=== PATIENT | male | born 1960 | race African-American/Black ===

== ENCOUNTER 2017-06-04 19:55 | Emergency (ER) | payer MEDICARE ==
[~2017-06-04 19:55] MED LIST: ISOVUE-370 76%-LOCM 1 ML ONE
--- NOTE | 2017-06-04 20:52 | RAD ---
PORTABLE CHEST ONE VIEW: Date: 06-04-17 Time: 8:23 p.m. History: Nausea, vomiting. FINDINGS/IMPRESSION: Compared with exam of 11-04-16. Heart size normal. Changes of COPD are again seen. No lobar consolidation, pneumothorax or pleral eff usions are identified. POS: [facility]
[2017-06-04] MEDS ORDERED: Morphine 4 MG/ML VIAL ONE (21:00)
[2017-06-04] MEDS ORDERED: Ondansetron HCl/PF 4 MG/2 ML Vial ONE ×2 (21:00→23:07)
[2017-06-04 21:04] LABS: #Basophils 0.1 thou/uL (0.0-0.2); #Lymphocytes 1.6 thou/uL (1.20-3.40); #Neutrophils 7.6 thou/uL (1.40-6.50); %Basophils 0.5 % (0.0-1.0); %Eosinophils 0.2 % (0.0-10.0); %Lymphocytes 15.7 % (21.0-51.0); %Monocytes 9.9 % (0.0-10.0); %Neutrophils 73.7 % (42.0-75.0); ALT (SGPT) 85 U/L (8-55); AST (SGOT) 94 U/L (5-34); Albumin 4.3 g/dL (3.5-5.0); Alkaline Phosphatase 106 U/L (40-150); Anion Gap 21 mmol/L (10-20); BUN (Urea Nitrogen) 7 mg/dL (8.4-25.7); Bilirubin, Total 0.9 mg/dL (0.2-1.2); Calc. Creatinine Clearance 0 mL/min (70-130); Calcium 9.9 mg/dL (7.8-10.44); Carbon Dioxide 19 mmol/L (22-29); Chloride 99 mmol/L (98-107); Eosinophils 1 % (0-10); Estimated GFR-MDRD Greater than 90; Globulin 4.7 g/dL (2.4-3.5); Glucose 150 mg/dL (70-105); Hemoglobin 15.5 g/dL (14.0-18.0); Lipase 19 U/L (8-78); Lymphocytes 17 % (21-51); MDiff Complete? YES; Magnesium 1.6 mg/dL (1.6-2.6); Mean Corpuscular HGB CONC 33.9 g/dL (32.0-36.0); Mean Corpuscular Hemoglobin 31.7 pg (27.0-31.0); Mean Corpuscular Volume 93.5 fl (80.0-94.0); Mean Platelet Volume 7.8 fL (7.4-10.4); Monocytes 9 % (0-10); Neutrophil 73 % (42-75); PLT Morphology Comment Appears Adequate; Platelet Count 246 thou/uL (130-400); Potassium 4.2 mmol/L (3.5-5.1); RBC Distribution Width 14.2 % (11.5-14.5); Sodium 135 mmol/L (136-145); White Blood Cell (WBC) Count 10.3 thou/uL (4.8-10.8)
[2017-06-04 21:07] LABS: CKMB 0.6 ng/mL (0-6.6); Troponin I Less than 0.010 ng/mL (< 0.028)
[2017-06-04 22:52] LABS: Bilirubin Negative (Negative); Blood, Urine Negative (Negative); Clarity CLEAR (Clear); Glucose, Urine (Dipstick) Negative (Negative); Leukocyte Negative (Negative); Nitrite Negative (Negative); Protein, Urine (Dipstick) Negative (Neg-Trace); Urobilinogen 0.2 mg/dL (0.2-1.0)
[2017-06-04 22:53] LABS: Specific Gravity, Urine Greater than 1.060 (1.002-1.036)
--- NOTE | 2017-06-04 23:25 | CT ---
CT ABDOMEN AND PELVIS WITH IV CONTRAST: History: Abdominal pain with nausea and vomiting. FINDINGS: Comparison is made with exam of 08-13-16. There are emphysematous changes in the lung lala are again seen. There is fatty infiltration of the liver. No hepatic mass or abnormal biliary ductal dilatation is seen. No calcifications are identifi ed. The spleen, pancreas, adrenal glands, and right kidney are normal. There is a small low density i n the left renal cortex, likely a cyst. No free air, free fluid, or lymphadenopathy is seen in the ab domen or pelvis. There are vascular calcifications without evidence of aneurysmal dilatation of the a bdominal aorta. There are degenerative changes in the spine. There is a right sided hydrocele. There is no evidence of appendicitis. Sigmoid diverticulosis. IMPRESSION: 1. No evidence of acute process. 2. Fatty liver. 3. Right sided hydrocele. 4. Sigmoid diverticulosis. POS: [facility]
[2017-06-05 01:19] LABS: Lactic Acid 1.6 mmol/L (0.5-2.2)
== END 2017-06-05 01:55 | disposition home or self-care (01) ==
LOC: ERS 19:55
DX: E86.0 Dehydration (principal); R74.0 Nonspecific elevation of levels of transaminase and lactic acid dehydrogenase [LDH]; J44.9 Chronic obstructive pulmonary disease, unspecified; Z86.711 Personal history of pulmonary embolism; F17.210 Nicotine dependence, cigarettes, uncomplicated; Z79.899 Other long term (current) drug therapy
CPT/HCPCS: 36415; 71045; 74177; 80053; 81003; 82553; 83605; 83690; 83735; 84484; 85025; 93005; 96361; 96374; 96375; 96376; 99406; J2270; J2405

== ENCOUNTER 2017-08-21 08:23 | Emergency (ER) | payer MEDICARE ==
[2017-08-21] MEDS ORDERED: Morphine 4 MG/ML VIAL ONE (09:05)
[2017-08-21] MEDS ORDERED: Ondansetron ODT 4 MG TAB ONE (09:05)
[2017-08-21 09:21] LABS: Hemoglobin 14.2 g/dL (14.0-18.0); Mean Corpuscular HGB CONC 33.3 g/dL (32.0-36.0); Mean Corpuscular Hemoglobin 30.8 pg (27.0-31.0); Mean Corpuscular Volume 92.5 fl (80.0-94.0); Mean Platelet Volume 7.7 fL (7.4-10.4); Platelet Count 267 thou/uL (130-400); RBC Distribution Width 13.9 % (11.5-14.5); Red Blood Cell (RBC) Count 4.62 mill/uL (4.70-6.10)
--- NOTE | 2017-08-21 09:30 | RAD ---
TWO VIEWS CHEST: Date: 08-21-17 Comparison: 09-17-16 History: Nausea and vomiting. FINDINGS: There are coarse linear interstitial densities noted throughout both lungs with bilateral apical emph ysematous change and prominent subpleural cystic change, right greater than left. These findings are stable when compared to prior imaging. Subacute/chronic lateral inferior left rib fracture. No lobar consolidation or alveolar edema. IMPRESSION: Extensive chronic changes as described above. No definite interval change when compared to prior imag ing. POS: [facility]
[2017-08-21 09:40] LABS: Band 15 % (5-11); Lymphocytes 6 % (21-51); MDiff Complete? YES; Monocytes 4 % (0-10); Neutrophil 75 % (42-75); PLT Morphology Comment Appears Adequate; Vacuoles SLIGHT
[2017-08-21 09:50] LABS: CKMB 0.3 ng/mL (0-6.6); Troponin I Less than 0.010 ng/mL (< 0.028)
[2017-08-21] MEDS ORDERED: ISOVUE-370 76%-LOCM 1 ML ONE (10:39)
[2017-08-21] MEDS ORDERED: Iopamidol 370 76% 50 ML VIAL FS ONE (10:39)
[2017-08-21 10:58] LABS: Albumin 3.8 g/dL (3.5-5.0)
[2017-08-21 11:00] LABS: Chloride 103 mmol/L (98-107); Potassium 5.3 mmol/L (3.5-5.1); Sodium 130 mmol/L (136-145)
[2017-08-21 11:01] LABS: Calcium 8.9 mg/dL (7.8-10.44); Globulin 4.4 g/dL (2.4-3.5); Glucose 138 mg/dL (70-105); Protein, Total 8.2 g/dL (6.0-8.3)
[2017-08-21 11:02] LABS: Anion Gap 19 mmol/L (10-20); Carbon Dioxide 13 mmol/L (22-29)
[2017-08-21 11:03] LABS: Bilirubin, Total 1.4 mg/dL (0.2-1.2)
[2017-08-21 11:04] LABS: Alkaline Phosphatase 79 U/L (40-150); Calc. Creatinine Clearance 0 mL/min (70-130); Estimated GFR-MDRD 76
[2017-08-21 11:05] LABS: BUN (Urea Nitrogen) 7 mg/dL (8.4-25.7)
[2017-08-21 11:06] LABS: AST (SGOT) 25 U/L (5-34)
[2017-08-21 11:07] LABS: ALT (SGPT) 16 U/L (8-55); Lipase 11 U/L (8-78)
[2017-08-21 11:29] LABS: Bilirubin Small (Negative); Blood, Urine Negative (Negative); Clarity CLEAR (Clear); Glucose, Urine (Dipstick) Negative (Negative); Leukocyte Small (Negative); Nitrite Negative (Negative); Protein, Urine (Dipstick) 30 mg/dL (Neg-Trace); Specific Gravity, Urine 1.019 (1.002-1.036); pH, Urine 7.5 (5.0-9.0)
[2017-08-21 11:33] LABS: Bacteria/HPF None Seen HPF (None Seen); Pathc Cast-AUWi Flag 1.59 (0-2.49); Squamous Epithelial 0-3 HPF (0-3); WBC/HPF 0-3 HPF (0-3)
[2017-08-21 11:35] LABS: RBC/HPF 0-3 HPF (0-3)
--- NOTE | 2017-08-21 12:47 | CT ---
CT ABDOMEN WITH CONTRAST CT PELVIS WITH CONTRAST: HISTORY: Abdominal pain. Vomiting. COMPARISON: 06/04/17. TECHNIQUE: Abdomen and pelvic CT are performed with IV and oral contrast. Coronal reformatted images are submit janae for interpretation. FINDINGS: ABDOMEN CT: Minimal ground-glass and emphysematous changes in the lung bases. Heart size is normal. No pericard ial effusion. The descending thoracic aorta and abdominal aorta have an overall normal caliber. No periaortic fat stranding. Mild atherosclerosis is noted. Intra- and extrahepatic portal vein is patent. Diffuse hypoattenuation of the liver due to hepatic steatosis. No hepatic masses. A 12 cm hypodensi ty in the hepatic dome measuring 4 mm. The lesion is too small to further characterize. Spleen, blackburn creas, and adrenal glands are unremarkable. Gallbladder is unremarkable. No gastrohepatic, retrocrural, or periportal lymphadenopathy. No mesenteric mass, lymphadenopathy, free air, or free fluid. Symmetric enhancement of the kidneys. No obstructive uropathy. Gastric mucosa, duodenum, and multip le normal-caliber small bowel loops are noted. The ileocecal junction is normal. Scattered fecal ma terial in a nondistended, nondilated colon. No evidence of chronic obstruction. Appendix is not jaxon reciated. No inflammation at the cecal apex. PELVIC CT: No mass, lymphadenopathy, free air, or free fluid. The urinary bladder is unremarkable. No lytic or blastic lesions in the osseous structures. IMPRESSION: 1. Mild emphysematous change in the lung bases. 2. No acute abnormality in the abdomen or pelvis. 3. Hepatic steatosis. POS: [facility]
== END 2017-08-21 12:06 | disposition home or self-care (01) ==
LOC: ERS 08:23
DX: E86.0 Dehydration (principal); R11.2 Nausea with vomiting, unspecified; R10.9 Unspecified abdominal pain; Z86.711 Personal history of pulmonary embolism; J44.9 Chronic obstructive pulmonary disease, unspecified; Z87.891 Personal history of nicotine dependence; Z79.899 Other long term (current) drug therapy
CPT/HCPCS: 36415; 71046; 74177; 80053; 81003; 81015; 82553; 83690; 84484; 85025; 93005; 96361; 96374; J2270; Q0162

== ENCOUNTER 2017-09-06 17:43 | Emergency (ER) | payer MEDICARE ==
[2017-09-06 19:00] LABS: #Basophils 0.1 thou/uL (0.0-0.2); #Lymphocytes 1.4 thou/uL (1.20-3.40); #Neutrophils 11.9 thou/uL (1.40-6.50); %Basophils 0.6 % (0.0-1.0); %Eosinophils 0.1 % (0.0-10.0); %Lymphocytes 9.5 % (21.0-51.0); %Monocytes 6.7 % (0.0-10.0); %Neutrophils 83.2 % (42.0-75.0); Hemoglobin 15.2 g/dL (14.0-18.0); Mean Corpuscular HGB CONC 33.9 g/dL (32.0-36.0); Mean Corpuscular Hemoglobin 30.8 pg (27.0-31.0); Mean Corpuscular Volume 90.8 fl (80.0-94.0); Mean Platelet Volume 7.1 fL (7.4-10.4); Platelet Count 522 thou/uL (130-400); RBC Distribution Width 14.7 % (11.5-14.5); Red Blood Cell (RBC) Count 4.92 mill/uL (4.70-6.10); White Blood Cell (WBC) Count 14.4 thou/uL (4.8-10.8)
[2017-09-06] MEDS ORDERED: Ondansetron HCl/PF 4 MG/2 ML Vial SLOW IVP SCH (19:00)
[2017-09-06 19:08] LABS: ALT (SGPT) 16 U/L (8-55); AST (SGOT) 26 U/L (5-34); Albumin 4.1 g/dL (3.5-5.0); Alkaline Phosphatase 89 U/L (40-150); Anion Gap 18 mmol/L (10-20); BUN (Urea Nitrogen) 8 mg/dL (8.4-25.7); Bilirubin, Total 0.7 mg/dL (0.2-1.2); Calc. Creatinine Clearance 0 mL/min (70-130); Calcium 10.3 mg/dL (7.8-10.44); Carbon Dioxide 23 mmol/L (22-29); Chloride 95 mmol/L (98-107); Estimated GFR-MDRD 79; Globulin 5.5 g/dL (2.4-3.5); Glucose 144 mg/dL (70-105); Lipase 33 U/L (8-78); Potassium 4.6 mmol/L (3.5-5.1); Protein, Total 9.6 g/dL (6.0-8.3); Sodium 131 mmol/L (136-145)
[2017-09-06] MEDS ORDERED: Ketorolac Tromethamine 30 MG/ML VIAL ONE (20:14)
== END 2017-09-06 22:15 | disposition home or self-care (01) ==
LOC: ERS 17:43
DX: K29.70 Gastritis, unspecified, without bleeding (principal); J44.9 Chronic obstructive pulmonary disease, unspecified; Z86.711 Personal history of pulmonary embolism; Z87.891 Personal history of nicotine dependence; Z79.899 Other long term (current) drug therapy
CPT/HCPCS: 80053; 83690; 85025; 96361; 96374; 96375; J1885; J2405

== ENCOUNTER 2017-12-27 17:07 | Observation (INO) | payer MEDICARE ==
[2017-12-27] MEDS ORDERED: Ondansetron ODT 4 MG TAB ONE (17:22)
[2017-12-27 17:38] LABS: #Basophils 0.2 thou/uL (0.0-0.2); #Lymphocytes 1.7 thou/uL (1.20-3.40); #Monocytes 0.9 thou/uL (0.11-0.59); #Neutrophils 11.5 thou/uL (1.40-6.50); %Basophils 1.1 % (0.0-1.0); %Eosinophils 0.1 % (0.0-10.0); %Lymphocytes 12.1 % (21.0-51.0); %Monocytes 6.6 % (0.0-10.0); %Neutrophils 80.1 % (42.0-75.0); Hemoglobin 15.9 g/dL (14.0-18.0); Mean Corpuscular HGB CONC 32.2 g/dL (32.0-36.0); Mean Corpuscular Hemoglobin 29.7 pg (27.0-31.0); Mean Corpuscular Volume 92.4 fL (78.0-98.0); Mean Platelet Volume 6.7 fL (7.4-10.4); Platelet Count 320 thou/uL (130-400); RBC Distribution Width 14.5 % (11.5-14.5); Red Blood Cell (RBC) Count 5.34 mill/uL (4.70-6.10); White Blood Cell (WBC) Count 14.3 thou/uL (4.8-10.8)
[2017-12-27 18:09] LABS: Anion Gap 23 mmol/L (10-20); BUN (Urea Nitrogen) 6 mg/dL (8.4-25.7); Calc. Creatinine Clearance 0 mL/min (70-130); Carbon Dioxide 17 mmol/L (22-29); Chloride 97 mmol/L (98-107); Estimated GFR-MDRD 77; Glucose 166 mg/dL (70-105); Potassium 4.7 mmol/L (3.5-5.1); Sodium 132 mmol/L (136-145)
[2017-12-27 18:10] LABS: ALT (SGPT) 25 U/L (8-55); AST (SGOT) 37 U/L (5-34); Albumin 4.4 g/dL (3.5-5.0); Alkaline Phosphatase 87 U/L (40-150); Bilirubin, Total 0.9 mg/dL (0.2-1.2); Globulin 5.2 g/dL (2.4-3.5); Lipase 18 U/L (8-78); Protein, Total 9.6 g/dL (6.0-8.3)
[2017-12-27] MEDS ORDERED: Morphine 4 MG/ML VIAL ONE (18:31)
[2017-12-27] MEDS ORDERED: Metoclopramide HCl 10 MG/2 ML VIAL ONE (18:31)
--- NOTE | 2017-12-27 20:09 | CT ---
ABDOMEN AND PELVIS CT WITH CONTRAST 12/27/17 COMPARISON: 08/21/17. INDICATION: Abdominal pain, leukocytosis. FINDINGS: No interval acute process of the solid abdominal organs. There is emphysema of the lung bases. There are scattered colonic diverticula. Vascular disease is present. There is no free air or significant a scites. Prostate calcifications present. There is marked prominence of the seminal vesicles. No acute osseous pathology. The bowel is essentially unopacified by enteric contrast with the exception of th e gastric lumen which limits evaluation. IMPRESSION: No definite acute process. Additional details are described above. POS: [facility]
[2017-12-27] MEDS ORDERED: Ondansetron HCl/PF 4 MG/2 ML Vial ONE (21:39)
[2017-12-27 21:58] VITALS: BMI 20.1
[2017-12-27] MEDS ORDERED: Ondansetron HCl/PF 4 MG/2 ML Vial IVP PRN (22:01)
[2017-12-27] MEDS ORDERED: Ondansetron ODT 4 MG TAB SL PRN (22:01)
[2017-12-27] MEDS ORDERED: HYDROcodone/Acetaminophen 5/325 mg Tablet PO PRN ×2 (22:01)
[2017-12-27] MEDS: Sodium Chloride 0.9% 1,000 ML IV SCH (22:21)
[2017-12-28] MEDS: Sodium Chloride 0.9% 1,000 ML IV SCH ×5 (04:39→22:16)
[2017-12-28] MEDS ORDERED: Morphine 4 MG/ML VIAL IV SCH (06:30)
[2017-12-28 10:18] LABS: #Basophils 0.1 thou/uL (0.0-0.2); #Eosinphils 0.1 thou/uL (0.0-0.7); #Lymphocytes 1.4 thou/uL (1.20-3.40); #Monocytes 1.2 thou/uL (0.11-0.59); #Neutrophils 5.9 thou/uL (1.40-6.50); %Basophils 0.6 % (0.0-1.0); %Eosinophils 0.9 % (0.0-10.0); %Lymphocytes 16.4 % (21.0-51.0); %Monocytes 13.5 % (0.0-10.0); %Neutrophils 68.6 % (42.0-75.0); Hemoglobin 12.3 g/dL (14.0-18.0); Mean Corpuscular HGB CONC 32.7 g/dL (32.0-36.0); Mean Corpuscular Hemoglobin 30.5 pg (27.0-31.0); Mean Corpuscular Volume 93.4 fL (78.0-98.0); Mean Platelet Volume 6.5 fL (7.4-10.4); Platelet Count 264 thou/uL (130-400); RBC Distribution Width 14.4 % (11.5-14.5); Red Blood Cell (RBC) Count 4.05 mill/uL (4.70-6.10); White Blood Cell (WBC) Count 8.6 thou/uL (4.8-10.8)
[2017-12-28 11:59] LABS: ALT (SGPT) 15 U/L (8-55); AST (SGOT) 24 U/L (5-34); Albumin 3.4 g/dL (3.5-5.0); Alkaline Phosphatase 60 U/L (40-150); Anion Gap 10 mmol/L (10-20); BUN (Urea Nitrogen) 6 mg/dL (8.4-25.7); Calc. Creatinine Clearance 76 mL/min (70-130); Calcium 8.4 mg/dL (7.8-10.44); Carbon Dioxide 23 mmol/L (22-29); Chloride 107 mmol/L (98-107); Estimated GFR-MDRD Greater than 90; Globulin 3.6 g/dL (2.4-3.5); Glucose 109 mg/dL (70-105); Potassium 3.7 mmol/L (3.5-5.1); Sodium 136 mmol/L (136-145)
[2017-12-28] MEDS: Ondansetron HCl/PF 4 MG/2 ML Vial IVP PRN ×2 (14:26→21:14)
[2017-12-28] MEDS ORDERED: Acetaminophen/Codeine 30-300mg Tablet PO PRN (20:56)
[2017-12-29] MEDS ORDERED: Pantoprazole 40 MG VIAL IVP SCH ×2 (02:00→09:00)
--- NOTE | 2017-12-29 02:25 | HP ---
DATE OF ADMISSION: 12/27/2017 REASON FOR ADMISSION AND CHIEF COMPLAINT: Intractable nausea, vomiting, and abdominal pain. HISTORY OF PRESENT ILLNESS: Mr. Marc is a 57-year-old -[place] male with past medical history of COPD, retinitis pigmentosa, came with sudden onset of nausea, vomiting. The patient has history of chronic nausea, vomiting in the past, had GI workup done earlier this year. The patient says he vomited several times, unable to eat anything and unable to keep anything down. Whenever he tries to eat or drink anything, he has vomited. Because of that, he is having pain in the epigastric area. No history of fever, cough, congestion, no history of any diarrhea or constipation. The patient came to the emergency room because of these intractable nausea and vomiting. In the ER , the patient was evaluated and found to have some metabolic acidosis. The patient received IV fluids and Zofran in the ER, also received a dose of Reglan. CT scan of the abdomen and pelvis done and it was unremarkable. PAST MEDICAL HISTORY: 1. Retinitis pigmentosa. 2. Bullous emphysema. 3. history of pulmonary embolism, treated with Eliquis. 4. History of lactic acidosis. PAST SURGICAL HISTORY: 1. Status post neck surgery. 2. Status post right femur surgery. 3. Status post appendectomy. CURRENT MEDICATIONS: Zofran p.r.n. Otherwise, no other medications. FAMILY HISTORY: Nothing of interest. SOCIAL HISTORY: The patient lives with family. He does not smoke now, used to smoke before. Drinks beer every day, he says about 4-5 beers. REVIEW OF SYSTEMS: Cardiovascular: No chest pain. No shortness of breath. Respiratory: No cough, fever. Gastrointestinal: Has abdominal pain, nausea, vomiting. No diarrhea. Central nervous system: No headache, no dizziness. PHYSICAL EXAMINATION: GENERAL: The patient is alert, awake, oriented x3. VITAL SIGNS: Temperature 98, pulse 110, respirations 20, blood pressure 130/80. HEENT: Head is normocephalic, atraumatic. Pupils equal and reactive to light. Nasopharynx is pale and dry. Hard and soft palate, no lesions seen. SKIN: Skin turgor decreased. NECK: Supple. No JVD. LUNGS: Bilateral air entry present. No rales, no rhonchi. HEART: S1, S2 regular. ABDOMEN: Soft. Tender in the epigastric area. No guarding, no rigidity. Bowel sounds present. RECTAL: Deferred. CENTRAL NERVOUS SYSTEM: No focal deficit. LABORATORY AND X-RAY FINDINGS: CBC shows WBC 14, hemoglobin 15, hematocrit 49, platelets 320. Metabolic panel: Sodium 132, potassium 4.7, chloride 97, CO2 of 17, BUN 6, creatinine 1.1, glucose 166, alkaline phosphatase 87, AST 37, ALT 25. CT scan of the abdomen unremarkable. ASSESSMENT: 1. Intractable nausea and vomiting. 2. Abdominal pain, epigastric. 3. Metabolic acidosis. 4. Bullous emphysema. 5. Retinitis pigmentosa and History of pulmonary embolism. PLAN: 1. Vital signs q.4 hours. 2. Activities: As tolerated. 3. Allergies: No known drug allergies. 4. IV fluids: Normal saline at 100 mL per hour. 5. Diet: N.p.o. 6. Zofran 4 mg IVP q.6 hours p.r.n. 7. DuoNebs q.i.d. p.r.n. 8. GI consult. PAULINA
[2017-12-29 05:37] LABS: #Eosinphils 0.3 thou/uL (0.0-0.7); #Lymphocytes 1.2 thou/uL (1.20-3.40); #Neutrophils 5.7 thou/uL (1.40-6.50); %Basophils 0.5 % (0.0-1.0); %Eosinophils 3.3 % (0.0-10.0); %Lymphocytes 14.8 % (21.0-51.0); %Monocytes 12.1 % (0.0-10.0); %Neutrophils 69.3 % (42.0-75.0); Hemoglobin 12.2 g/dL (14.0-18.0); Mean Corpuscular HGB CONC 32.4 g/dL (32.0-36.0); Mean Corpuscular Hemoglobin 30.3 pg (27.0-31.0); Mean Corpuscular Volume 93.5 fL (78.0-98.0); Platelet Count 249 thou/uL (130-400); RBC Distribution Width 14.1 % (11.5-14.5); Red Blood Cell (RBC) Count 4.04 mill/uL (4.70-6.10); White Blood Cell (WBC) Count 8.2 thou/uL (4.8-10.8)
[2017-12-29 05:48] LABS: Anion Gap 13 mmol/L (10-20); BUN (Urea Nitrogen) Less than 4 mg/dL (8.4-25.7); Calc. Creatinine Clearance 98 mL/min (70-130); Calcium 8.5 mg/dL (7.8-10.44); Carbon Dioxide 20 mmol/L (22-29); Chloride 104 mmol/L (98-107); Estimated GFR-MDRD Greater than 90; Glucose 89 mg/dL (70-105); Potassium 3.5 mmol/L (3.5-5.1); Sodium 133 mmol/L (136-145)
--- NOTE | 2017-12-29 05:56 | CON ---
DATE OF CONSULTATION: 12/29/2017 CHIEF COMPLAINT: Nausea, vomiting. HISTORY OF PRESENT ILLNESS: Mr. Marc is a 57-year-old man who presented to the emergency room last night with nausea and vomiting. He has had chronic intermittent nausea and vomiting over the last ye ar at least. About every 3 months he gets episodes of vomiting that go on for about 3 days at a time . He does get some abdominal muscle wall soreness from the vomiting, but no other abdominal pain. N o diarrhea, constipation or blood in the stool, no hematemesis. He has not noticed any triggering fo ods or other factors for the episodes of nausea and vomiting. He denies any marijuana use or other d rug use. He does drink 2-5 beers per day. His weight has been stable. PAST MEDICAL HISTORY: COPD, pulmonary embolism, recurrent nausea and vomiting. PAST SURGICAL HISTORY: Cataract surgery, he does have legal blindness. Past surgical history also i ncludes appendectomy. FAMILY HISTORY: Negative for GI malignancy or liver disease. SOCIAL HISTORY: He drinks 2-5 beers per day. He quit smoking 2 years ago. Denies any drug use. ALLERGIES: PHENERGAN. He states this kept him up for 2 days when he took this. MEDICATIONS PRIOR TO ADMISSION: None recently. He has taken inhalers as needed in the past, but not recently. He quit taking Eliquis about a month ago. REVIEW OF SYSTEMS: Negative x10 systems reviewed except as stated in history of present illness. He is feeling better now and vomited a couple times this morning, but is doing better at this point. PHYSICAL EXAMINATION: VITAL SIGNS: Temperature 98.2, pulse 67, blood pressure 137/70. GENERAL: He is in no acute distress, alert and oriented x3. EYES: Have no scleral icterus. OROPHARYNX: Clear, without lesions. NECK: No cervical or supraclavicular lymphadenopathy. LUNGS: Clear to auscultation bilaterally. HEART: Regular rate and rhythm without murmur. ABDOMEN: Soft, nontender, nondistended. Bowel sounds are present. EXTREMITIES: No lower extremity edema. LABORATORY DATA: White blood cell count 8.6 down from 14.3 yesterday, hemoglobin is 12.3 down from 1 5.9 after rehydration, platelets 264. Eosinophils 0.9, creatinine 0.95, bilirubin 1.0, AST 24, ALT 1 5, alkaline phosphatase 60, albumin 3.4, lipase 18. IMPRESSION: 1. Recurrent nausea and vomiting. He has these episodes about every 3 months that last around 3 day s at a time. Cyclical vomiting syndrome is a possibility. Cannabis hyperemesis needs to be ruled ou t; however, he denies use. We will check a urine tox screen. Gastroparesis is a consideration. He does go back to normal between these episodes which could be consistent with cyclical vomiting syndro me. The alcohol use may be causing significant symptoms as well. 2. He did have EGD and colonoscopy by Dr. Bermudez back in 12/2016. He did have some gastritis and was started on a proton pump inhibitor for that. He did not show up for followup appointments after that . Biopsies were okay. He has had 5 CT scans of the abdomen and pelvis over the last year. RECOMMENDATIONS: 1. Gastric emptying scan tomorrow. 2. Check tox screen for cannabis. 3. Alcohol cessation is recommended. 4. If the gastric emptying scan is normal, then he should follow up with Dr. Bermudez as an outpatient f or further workup of his chronic symptoms.
[2017-12-29 06:08] LABS: Amphetamine Not Detected (NotDetected); Barbiturates Screen Not Detected (NotDetected); Benzodiazepine Screen Not Detected (NotDetected); Cocaine Metabolite Screen Not Detected (NotDetected); Medtox Control Line Valid? VALID (VALID); Medtox Reader # READER 4; Methadone Not Detected (NotDetected); Methamphetamine Not Detected (NotDetected); Opiate Screen Detected (NotDetected); Oxycodone Screen Not Detected (NotDetected); Phencyclidine (PCP) Not Detected (NotDetected); THC/Cannabinoid Screen Not Detected (NotDetected); Tricyclic Screen Not Detected (NotDetected)
[2017-12-29 08:16] VITALS: BP 159/93; TEMP 98.9
[2017-12-29] MEDS: Sodium Chloride 0.9% 1,000 ML IV SCH (12:06)
--- NOTE | 2017-12-29 15:19 | PRG ---
DATE OF CONSULTATION: 12/29/2017. SUBJECTIVE: Mr. Marc feels much better today. He is tolerating solid diet so far. He did his giuseppe jeana emptying scan this morning. OBJECTIVE: VITAL SIGNS: Temperature 98.9, pulse 65, blood pressure 159/93. GENERAL: He is in no acute distress. He is alert and oriented x3. LUNGS: Clear to auscultation bilaterally. HEART: Regular rate and rhythm without murmur. ABDOMEN: Soft, nontender, nondistended, bowel sounds are present. EXTREMITIES: No lower extremity edema. LABORATORY DATA: White blood cell count 8.2, hemoglobin 12.2, platelets 249, creatinine 0.74. IMPRESSION: Cyclical vomiting syndrome. He has episodes of vomiting for 3-5 days at a time that then resolved an d he goes back to normal between episodes. These episodes occur every 3 months. His gastric emptyin g scan did show some delayed emptying with 81% emptying at 4 hours. Official radiologist's reading i s pending. He has had no weight loss. He did have upper and lower endoscopy last year by Dr. Bermudez w [facility] was negative. Abdominal and pelvis CT scan did not show a pancreatic mass. He has had 5 CT sca ns of the abdomen and pelvis in the last year. RECOMMENDATIONS: 1. Start metoclopramide 10 mg 4 times daily prior to meals and at bedtime during flares of the nause a and vomiting. Discontinue use of the medicine between flares. Hopefully, this will help prevent r ecurrent ER visits and hospitalization and better symptom control. He will receive his first dose of the metoclopramide here in the hospital to make sure he does not have any significant adverse reacti on immediately. He was advised regarding the potential for neurological side effects and he will mon itor for these. 2. During flares of the vomiting, he is also advised to take small more frequent meals and avoid fib blaise foods and fatty foods. 3. Follow up with Dr. Bermudez in the office in a month. Please call if GI can be of assistance.
--- NOTE | 2017-12-29 16:39 | NM ---
RADIONUCLIDE GASTRIC EMPTYING SCAN: 12/29/17 HISTORY: Chronic recurrent nausea and vomiting, abdominal pain. RADIOPHARMACEUTICAL: 2.1 millicuries technetium 99m-sulfur colloid administered orally in scrambled eggs. FINDINGS: There was 56% emptying of the ingested gastric contents at one hour, 665 emptying at two hours, 76% e mptying at three hours and 81% emptying at four hours. IMPRESSION: Delayed gastric emptying. POS: [facility]
[2017-12-29] MEDS ORDERED: Metoclopramide 10 MG/10 ML UDCUP PO SCH (17:00)
--- NOTE | 2018-01-02 04:21 | DIS ---
DATE OF ADMISSION: 12/27/2017 DATE OF DISCHARGE: 12/29/2017 ADMITTING DIAGNOSES: 1. Intractable nausea and vomiting. 2. Abdominal pain, epigastric. 3. Metabolic acidosis. 4. Bullous emphysema. 5. Retinitis pigmentosa. 6. History of pulmonary embolism. FINAL DIAGNOSES: 1. Intractable nausea and vomiting, possible due to gastroparesis, improved. 2. Abdominal pain, improved. 3. Metabolic acidosis, corrected. 4. Bullous emphysema. 5. History of retinitis pigmentosa. BRIEF SUMMARY OF HOSPITAL COURSE: Mr. Marc is a 57-year-old male admitted because of severe nausea and vomiting, intractable, and unable to tolerate any diet. He was given Zofran and started on IV fluids. He had metabolic episode of cirrhosis. With IV fluids, his acidosis was corrected. A GI consult was done in view of his nausea and vomiting. The patient was seen by Dr. Guzman. His impression, the patient may have cyclical vomiting , gets episode every 3 months. The patient also drinks alcohol almost daily. He suggested gastric emptying study to rule out gastroparesis. Gastric emptying study showed delayed gastric emptying. He was started on Reglan and the patient did not have more nausea or vomiting. He is being discharged home. At the time of discharge, he was stable. His vital signs were stable. Lungs were clear. Heart sounds regular. Abdomen is soft, nontender. Bowel sounds present. DISCHARGE MEDICATIONS: Include, 1. Metoclopramide 10 mg 4 times daily prior to the meals. 2. Tylenol p.r.n. 3. Zofran p.r.n. FOLLOWUP: The patient will come for followup in 2 weeks. [facility]
== END 2017-12-29 16:04 | disposition home or self-care (01) ==
LOC: ERS 17:07 → 2SW 20:15
PROVIDERS: ADMIT Internal Medicine; ATTEND Internal Medicine
DX: G43.A0 Cyclical vomiting, in migraine, not intractable (principal); R10.13 Epigastric pain; J44.9 Chronic obstructive pulmonary disease, unspecified; H35.52 Pigmentary retinal dystrophy; E87.2 Acidosis; H54.8 Legal blindness, as defined in USA; Z86.711 Personal history of pulmonary embolism; Z87.891 Personal history of nicotine dependence; Z79.01 Long term (current) use of anticoagulants; Z79.899 Other long term (current) drug therapy; Z88.8 Allergy status to other drugs, medicaments and biological substances; Z88.5 Allergy status to narcotic agent
CPT/HCPCS: 74177; 78264; 80048; 80053 ×2; 80306; 83690; 85025 ×3; 90686; 96361 ×4; 96365; 96375 ×3; 96376 ×2; 99285; A9541; G0008; G0378; 36415; 90471; A4216; C9113; J2270; J2405; J2765; Q0162

== ENCOUNTER 2018-08-19 19:10 | Inpatient (IN) | payer MEDICARE ==
[2018-08-19 19:59] LABS: #Eosinphils 0.1 thou/uL (0.0-0.7); #Lymphocytes 1.3 thou/uL (1.20-3.40); #Monocytes 1.1 thou/uL (0.11-0.59); #Neutrophils 10.3 thou/uL (1.40-6.50); %Basophils 0.3 % (0.0-1.0); %Eosinophils 0.9 % (0.0-10.0); %Lymphocytes 10.1 % (21.0-51.0); %Monocytes 8.8 % (0.0-10.0); Hemoglobin 15.3 g/dL (14.0-18.0); Mean Corpuscular HGB CONC 33.4 g/dL (32.0-36.0); Mean Corpuscular Hemoglobin 31.7 pg (27.0-31.0); Mean Corpuscular Volume 94.7 fL (78.0-98.0); Platelet Count 248 thou/uL (130-400); RBC Distribution Width 12.6 % (11.5-14.5); Red Blood Cell (RBC) Count 4.83 mill/uL (4.70-6.10); White Blood Cell (WBC) Count 12.9 thou/uL (4.8-10.8)
[2018-08-19 20:27] LABS: ALT (SGPT) 23 U/L (8-55); AST (SGOT) 24 U/L (5-34); Albumin 3.7 g/dL (3.5-5.0); Alkaline Phosphatase 69 U/L (40-150); Anion Gap 15 mmol/L (10-20); BUN (Urea Nitrogen) 6 mg/dL (8.4-25.7); Bilirubin, Total 1.2 mg/dL (0.2-1.2); Calc. Creatinine Clearance 0 mL/min (70-130); Calcium 9.2 mg/dL (7.8-10.44); Carbon Dioxide 15 mmol/L (22-29); Chloride 95 mmol/L (98-107); Estimated GFR-MDRD Greater than 90; Globulin 4.3 g/dL (2.4-3.5); Glucose 138 mg/dL (70-105); Sodium 121 mmol/L (136-145)
[2018-08-19 20:32] LABS: Lipase 24 U/L (8-78)
[2018-08-19] MEDS ORDERED: Ondansetron PF 4 MG/2 ML Vial ONE (21:26)
[2018-08-19] MEDS ORDERED: Ketorolac Tromethamine 30 MG/ML VIAL ONE (22:06)
[2018-08-19 22:10] LABS: Bilirubin Negative (Negative); Blood, Urine Negative (Negative); Clarity CLEAR (Clear); Glucose, Urine (Dipstick) Negative (Negative); Leukocyte Negative (Negative); Nitrite Negative (Negative); Protein, Urine (Dipstick) Negative (Neg-Trace); Specific Gravity, Urine 1.014 (1.002-1.036)
--- NOTE | 2018-08-19 22:30 | RAD ---
AP view chest as well as AP and oblique views left ribs. Roya history: Trauma. Right upper lobe lung parenchymal fibrobullous changes seen. Diffuse bilateral lung parenchymal interstitial changes noted compatible with fibrosis. There is an acute left eighth rib fracture. No evidence of associated left-sided pneumothorax or effusion seen. IMPRESSION: Left-sided eighth rib fracture.
[2018-08-20 00:01] VITALS: BMI 19.7
[2018-08-20] MEDS ORDERED: Ondansetron ODT 4 MG TAB SL PRN (00:06)
[2018-08-20] MEDS ORDERED: Ondansetron PF 4 MG/2 ML Vial IVP PRN (00:06)
[2018-08-20] MEDS: Sodium Chloride 0.9% 1,000 ML IV SCH ×3 (00:20→09:57)
[2018-08-20] MEDS: Ketorolac Tromethamine 30 MG/ML VIAL IVP PRN ×3 (04:46→21:47)
[2018-08-20 11:54] LABS: Potassium, Urine 32.3 mmol/L
[2018-08-20 12:57] LABS: Anion Gap 13 mmol/L (10-20); BUN (Urea Nitrogen) 5 mg/dL (8.4-25.7); Calc. Creatinine Clearance 93 mL/min (70-130); Calcium 8.2 mg/dL (7.8-10.44); Carbon Dioxide 20 mmol/L (22-29); Chloride 102 mmol/L (98-107); Estimated GFR-MDRD Greater than 90; Glucose 96 mg/dL (70-105); Potassium 4.3 mmol/L (3.5-5.1); Sodium 131 mmol/L (136-145)
[2018-08-20] MEDS ORDERED: Ondansetron PF 4 MG/2 ML Vial SLOW IVP PRN (15:17)
--- NOTE | 2018-08-20 16:53 | RAD ---
AP and oblique views right ribs. HISTORY: Right-sided rib pain. AP and oblique views right RIBS demonstrate an acute fracture in the anterior aspect of the right eig hth rib. Severe right lung emphysematous and bullous changes seen. IMPRESSION: acute right eighth rib fracture.
[2018-08-20] MEDS: Metoclopramide HCl 10 MG TAB PO SCH ×2 (18:03→21:44)
[2018-08-20 18:34] LABS: Amphetamine Not Detected (NotDetected); Barbiturates Screen Not Detected (NotDetected); Benzodiazepine Screen Not Detected (NotDetected); Cocaine Metabolite Screen Not Detected (NotDetected); Medtox Control Line Valid? VALID (VALID); Medtox Reader # READER 4; Methadone Not Detected (NotDetected); Methamphetamine Not Detected (NotDetected); Opiate Screen Not Detected (NotDetected); Oxycodone Screen Not Detected (NotDetected); Phencyclidine (PCP) Not Detected (NotDetected); THC/Cannabinoid Screen Not Detected (NotDetected); Tricyclic Screen Not Detected (NotDetected)
[2018-08-20] MEDS: Melatonin 3 MG TAB PO PRN (21:44)
[2018-08-21] MEDS: Ketorolac Tromethamine 30 MG/ML VIAL IVP PRN ×3 (04:51→19:38)
[2018-08-21] MEDS: Metoclopramide HCl 10 MG TAB PO SCH ×4 (08:18→19:38)
[2018-08-21] MEDS: Melatonin 3 MG TAB PO PRN (19:38)
[2018-08-22] MEDS: Ketorolac Tromethamine 30 MG/ML VIAL IVP PRN (02:59)
[2018-08-22 06:45] LABS: Anion Gap 13 mmol/L (10-20); BUN (Urea Nitrogen) 9 mg/dL (8.4-25.7); Calc. Creatinine Clearance 100 mL/min (70-130); Calcium 8.5 mg/dL (7.8-10.44); Carbon Dioxide 18 mmol/L (22-29); Chloride 104 mmol/L (98-107); Estimated GFR-MDRD Greater than 90; Glucose 94 mg/dL (70-105); Potassium 3.8 mmol/L (3.5-5.1); Sodium 131 mmol/L (136-145)
[2018-08-22] MEDS: Metoclopramide HCl 10 MG TAB PO SCH (07:52)
--- NOTE | 2018-08-22 09:01 | HP ---
CHIEF COMPLAINT: Nausea, vomiting, and history of fall. HISTORY OF PRESENT ILLNESS: Mr. Marc is a 57-year-old male with past medical history of bullous emphysema, came with nausea and vomiting. He has been eating. He has been in usual state until yesterday and started nausea and vomiting, vomited few times. Does not have an abdominal pain. No fever. The patient also claims he slipped and fell and hitting on the right rib area. The patient is unable to keep anything down, not eating well. He did not have any fever. In view of this persistent nausea and vomiting he came to hospital. In the ER, the patient was evaluated and found to have hyponatremia. ER physician felt the patient possibly is dehydrated. He was started on IV fluids, normal saline and given Zofran and Toradol, and admitted for further evaluation and management. PAST MEDICAL HISTORY: Includes; 1. Bullous emphysema. 2. History of pulmonary embolism. 3. Legally blind. 4. Chronic nausea and vomiting. PAST SURGICAL HISTORY: Status post appendectomy, status post neck surgery, and status post right femur surgery. CURRENT MEDICATIONS: He is just on Tylenol p.r.n. FAMILY HISTORY: Nothing contributory. SOCIAL HISTORY: No history of smoking. No history of drug abuse, but drinks alcohol every day. drinks about 4 to 5 beers. He claims he is not drinking any hard liquor. REVIEW OF SYSTEMS: CARDIOVASCULAR: No chest pain. No shortness of breath. RESPIRATORY: No fever or cough. GASTROINTESTINAL: He has nausea and vomiting, but no abdominal pain. CENTRAL NERVOUS SYSTEM: No headache. No dizziness. PHYSICAL EXAMINATION: GENERAL: The patient is alert, awake, and oriented x3. VITAL SIGNS: Temperature 98, pulse 76, respirations 20, and blood pressure 170/ 90. HEENT: Head is normocephalic and atraumatic. Pupils are equal and reactive. Nasopharynx is pale and dry. Hard and soft palate, no lesions. SKIN: Turgor decreased. NECK: Supple. No JVD. LUNGS: Bilateral air entry. Breath sounds diminished bilaterally. Percussion dull bilaterally. No rales. HEART: S1 and S2. Regular. ABDOMEN: Soft. No distention. No tenderness. Normal bowel sounds present. RECTAL: Deferred. CENTRAL NERVOUS SYSTEM: No focal deficit. LABORATORY DATA: CBC shows WBC 12.9, hemoglobin 15, hematocrit 45, and platelets 248. Metabolic panel; sodium 121, potassium 4, chloride 95, CO2 of 15, BUN 6, creatinine 0.9, and glucose 138. Urinalysis negative. X-ray of the rib showed eighth rib fracture on the left. ASSESSMENT: 1. Nausea and vomiting, persistent. 2. Severe hyponatremia. 3. Fracture of eighth rib on the left side after the fall. 4. Bullous emphysema. 5. History of pulmonary embolism. 6. Alcohol abuse. Drinks beer every day and has delayed gastric emptying. 7. History of gastroparesis. PLAN: 1. Vital signs q.4 hours. 2. Activity as tolerated. 3. Allergies, NKDA. 4. Diet, regular. 5. Basic metabolic panel in the morning. 6. DuoNeb q.i.d. p.r.n., Zofran p.r.n., and Toradol p.r.n. Also start him on Reglan. Job ID: [id number] MTDD
[2018-08-22 10:34] VITALS: BP 144/80; TEMP 97.8
--- NOTE | 2018-08-23 06:17 | DIS ---
DATE OF ADMISSION: 08/19/2018 DATE OF DISCHARGE: 08/22/2018 ADMITTING DIAGNOSES: 1. Nausea and vomiting, intractable. 2. Severe hyponatremia. 3. Fracture of the eighth rib on the right side. 4. Bullous emphysema. 5. History of pulmonary embolism. 6. Alcohol abuse. 7. History of gastroparesis. FINAL DIAGNOSES: 1. Intractable nausea and vomiting, improved. 2. Gastroparesis. 3. Severe hyponatremia, improved. 4. Fracture of eighth rib, right side. 5. Bullous emphysema. 6. History of pulmonary embolism. 7. Alcohol abuse. BRIEF SUMMARY OF HOSPITAL COURSE: Mr. Marc is a 57-year-old male admitted because of nausea and vomiting, which is persistent. The patient has a history of gastroparesis, but not taking any Reglan. He also states that he slipped and fell and has pain in the right lower rib area. X-rays revealed fracture of the eighth rib. The patient also drinks beer every day, so the patient was started on Zofran and then Reglan. His nausea and vomiting completely resolved. He tolerated a diet very well. His pain was controlled with Toradol. He was also hyponatremic, initially was given IV fluids and saline, but sodium improved 131 and it stayed around 131. In view of improvement, the patient was discharged, and at the time of discharge, he was stable. Vital signs are stable. Lungs are clear. Heart sounds are regular. Abdomen is soft and nontender. Bowel sounds are heard. DISCHARGE MEDICATIONS: Include metoclopramide (Reglan) 10 mg a.c. and at bedtime. FOLLOWUP: The patient will come for followup in 2 weeks. Job ID: [id number]
== END 2018-08-22 11:05 | disposition home or self-care (01) | DRG 392 ==
LOC: ERS 19:10 → T4-B 20:58
PROVIDERS: ADMIT Internal Medicine; ATTEND Internal Medicine
DX: K31.84 Gastroparesis (principal); E87.1 Hypo-osmolality and hyponatremia; S22.31XA Fracture of one rib, right side, initial encounter for closed fracture; J43.9 Emphysema, unspecified; W01.0XXA Fall on same level from slipping, tripping and stumbling without subsequent striking against object, initial encounter; E86.0 Dehydration; H54.8 Legal blindness, as defined in USA; F10.10 Alcohol abuse, uncomplicated; Z90.49 Acquired absence of other specified parts of digestive tract; Z86.711 Personal history of pulmonary embolism; Z88.5 Allergy status to narcotic agent; Z88.8 Allergy status to other drugs, medicaments and biological substances
CPT/HCPCS: 36415; 80048; 80053; 80306; 81003; 82436; 83690; 84133; 84300; 85025; 96361; 96374; 96375; J1885; J2405; J8597

== ENCOUNTER 2020-09-12 19:19 | Inpatient (IN) | payer MEDICARE ==
[2020-09-13] MEDS ORDERED: Ondansetron PF 4 MG/2 ML Vial ONE (00:27)
[2020-09-13] MEDS ORDERED: Morphine 4 MG/ML VIAL ONE (00:27)
[2020-09-13 00:37] LABS: Bilirubin Negative (Negative); Blood, Urine Negative (Negative); Clarity Clear (Clear); Glucose, Urine (Dipstick) Normal (Negative); Ketone, Urine 20 mg/dL (Negative); Leukocyte Negative Leu/uL (Negative); Nitrite Negative (Negative); Protein, Urine (Dipstick) Negative (Neg-Trace); Specific Gravity, Urine 1.013 (1.002-1.036); Urobilinogen Normal mg/dL (Less than 2); pH, Urine 6.5 (5.0-9.0)
[2020-09-13 00:55] LABS: #Eosinphils 0.1 thou/uL (0.0-0.7); #Lymphocytes 2.2 thou/uL (1.20-3.40); #Monocytes 1.2 thou/uL (0.11-0.59); %Basophils 0.3 % (0.0-1.0); %Eosinophils 1.1 % (0.0-10.0); %Lymphocytes 17.3 % (21.0-51.0); %Monocytes 9.6 % (0.0-10.0); %Neutrophils 71.8 % (42.0-75.0); Mean Corpuscular HGB CONC 34.3 g/dL (32.0-36.0); Mean Corpuscular Hemoglobin 33.3 pg (27.0-31.0); Mean Corpuscular Volume 97.1 fL (78.0-98.0); Mean Platelet Volume 8.3 fL (7.4-10.4); Platelet Count 213 thou/uL (130-400); RBC Distribution Width 12.9 % (11.5-14.5); Red Blood Cell (RBC) Count 5.11 mill/uL (4.70-6.10); White Blood Cell (WBC) Count 12.5 thou/uL (4.8-10.8)
[2020-09-13 02:31] LABS: Albumin 3.7 g/dL (3.5-5.0)
[2020-09-13 02:32] LABS: Chloride 99 mmol/L (98-107); Potassium 3.9 mmol/L (3.5-5.1); Sodium 129 mmol/L (136-145)
[2020-09-13 02:33] LABS: Calcium 8.7 mg/dL (7.8-10.44); Globulin 4.2 g/dL (2.4-3.5); Glucose 99 mg/dL (70-105); Protein, Total 7.9 g/dL (6.0-8.3)
[2020-09-13 02:35] LABS: Anion Gap 15 mmol/L (10-20); Bilirubin, Total 1.4 mg/dL (0.2-1.2); Carbon Dioxide 19 mmol/L (22-29)
[2020-09-13 02:36] LABS: Alkaline Phosphatase 54 U/L (40-110)
[2020-09-13 02:37] LABS: BUN (Urea Nitrogen) 10 mg/dL (8.4-25.7); Calc. Creatinine Clearance 0 mL/min (70-130)
[2020-09-13 02:38] LABS: AST (SGOT) 34 U/L (5-34)
[2020-09-13 02:39] LABS: ALT (SGPT) 33 U/L (8-55); Lipase 20 U/L (8-78)
[2020-09-13 03:14] LABS: Cocaine Metabolite Screen Not Detected (NotDetected); Medtox Reader # READER 4; Methamphetamine Not Detected (NotDetected); Phencyclidine (PCP) Not Detected (NotDetected); THC/Cannabinoid Screen Not Detected (NotDetected)
[2020-09-13 03:14] LABS: Acetaminophen Less than 6.0 mcg/mL (10.0-30.0); Alcohol Less than 10 mg/dL (Less than 10); Salicylate Less than 8.0 mg/dL (15.0-30.0)
[2020-09-13 03:15] LABS: Amphetamine Not Detected (NotDetected); Barbiturates Screen Not Detected (NotDetected); Benzodiazepine Screen Not Detected (NotDetected); Medtox Control Line Valid? VALID (VALID); Methadone Not Detected (NotDetected); Opiate Screen Not Detected (NotDetected); Oxycodone Screen Not Detected (NotDetected); Tricyclic Screen Not Detected (NotDetected)
[2020-09-13] MEDS ORDERED: Ondansetron PF 4 MG/2 ML Vial IVP PRN (06:30)
[2020-09-13] MEDS ORDERED: Sodium Chloride 0.9% 1,000 ML IV SCH ×2 (06:30→14:15)
[2020-09-13] MEDS ORDERED: Ondansetron ODT 4 MG TAB SL PRN (06:30)
[2020-09-13] MEDS ORDERED: Non-Formulary Item 1 EACH (Dorzolamide Hcl/Timolol Maleat [Dorzolamide Hcl/Timolol Maleat EA EYE SCH (09:42)
[2020-09-13] MEDS ORDERED: hydrALAZINE 20 MG/ML VIAL SLOW IVP SCH (09:45)
[2020-09-13] MEDS ORDERED: hydrALAZINE 20 MG/ML VIAL ONE (09:53)
[2020-09-13] MEDS ORDERED: Thiamine 100 MG TAB ONE (10:25)
[2020-09-13] MEDS ORDERED: Folic Acid 1 MG TAB ONE (10:25)
[2020-09-13] MEDS: Brimonidine Tartrate 0.2% Ophth Soln 5 ml Bottle EA EYE SCH ×2 (10:27→21:00)
[2020-09-13] MEDS ORDERED: Folic Acid 1 MG TAB PO SCH (10:30)
[2020-09-13] MEDS: Thiamine 100 MG TAB PO SCH (10:32)
[2020-09-13 10:47] LABS: Anion Gap 16 mmol/L (10-20); BUN (Urea Nitrogen) 10 mg/dL (8.4-25.7); Calc. Creatinine Clearance 90 mL/min (70-130); Carbon Dioxide 19 mmol/L (22-29); Chloride 98 mmol/L (98-107); Glucose 123 mg/dL (70-105); Potassium 3.9 mmol/L (3.5-5.1); Sodium 129 mmol/L (136-145)
[2020-09-13] MEDS ORDERED: Famotidine/PF 20 mg/2ml Vial ONE (11:25)
[2020-09-13] MEDS: Famotidine/PF 20 mg/2ml Vial SLOW IVP SCH ×2 (11:30→21:00)
[2020-09-13] MEDS: Multivitamins, Adult 10 ML, Folic Acid 1 MG, Thiamine HCl 100 MG in Dextrose 5 %-0.45 %... IV SCH (11:34)
[2020-09-13] MEDS ORDERED: Acetaminophen 325 MG TAB ONE (12:05)
[2020-09-13] MEDS: Acetaminophen 325 MG TAB PO PRN (12:07)
[2020-09-13] MEDS ORDERED: Lorazepam 1 MG TAB PO PRN (12:58)
[2020-09-13] MEDS ORDERED: Lorazepam 1 MG TAB ONE (13:01)
[2020-09-13] MEDS ORDERED: Lorazepam 2 MG/ML VIAL SLOW IVP PRN (14:45)
[2020-09-13 15:32] VITALS: BMI 19.1
[2020-09-13] MEDS: Latanoprost 0.005% Ophth Soln 2.5 ml Bottle EA EYE SCH (21:00)
[2020-09-13] MEDS: DorzolamidE/Timolol 2%/0.5% Ophth Soln 10 ml Bottle EA EYE SCH (21:05)
[2020-09-14 05:31] LABS: #Eosinphils 0.1 thou/uL (0.0-0.7); #Lymphocytes 1.2 thou/uL (1.20-3.40); #Neutrophils 5.8 thou/uL (1.40-6.50); %Basophils 0.4 % (0.0-1.0); %Eosinophils 1.7 % (0.0-10.0); %Lymphocytes 14.1 % (21.0-51.0); %Monocytes 12.7 % (0.0-10.0); %Neutrophils 71.2 % (42.0-75.0); Hemoglobin 14.4 g/dL (14.0-18.0); Mean Corpuscular HGB CONC 32.8 g/dL (32.0-36.0); Mean Corpuscular Hemoglobin 32.1 pg (27.0-31.0); Mean Corpuscular Volume 97.8 fL (78.0-98.0); Mean Platelet Volume 8.1 fL (7.4-10.4); Platelet Count 190 thou/uL (130-400); RBC Distribution Width 12.7 % (11.5-14.5); Red Blood Cell (RBC) Count 4.49 mill/uL (4.70-6.10); White Blood Cell (WBC) Count 8.2 thou/uL (4.8-10.8)
[2020-09-14 05:53] LABS: Anion Gap 12 mmol/L (10-20); BUN (Urea Nitrogen) 9 mg/dL (8.4-25.7); Calc. Creatinine Clearance 97 mL/min (70-130); Calcium 8.2 mg/dL (7.8-10.44); Carbon Dioxide 20 mmol/L (22-29); Chloride 101 mmol/L (98-107); Glucose 96 mg/dL (70-105); Potassium 3.1 mmol/L (3.5-5.1); Sodium 130 mmol/L (136-145)
[2020-09-14] MEDS: DorzolamidE/Timolol 2%/0.5% Ophth Soln 10 ml Bottle EA EYE SCH ×2 (08:30→22:08)
[2020-09-14] MEDS: Thiamine 100 MG TAB PO SCH (08:32)
[2020-09-14] MEDS: Folic Acid 1 MG TAB PO SCH (08:32)
[2020-09-14] MEDS: Famotidine/PF 20 mg/2ml Vial SLOW IVP SCH ×2 (08:33→22:09)
[2020-09-14] MEDS: Brimonidine Tartrate 0.2% Ophth Soln 5 ml Bottle EA EYE SCH ×2 (08:37→22:08)
[2020-09-14] MEDS ORDERED: Potassium Chloride 20 MEQ TAB PO SCH (08:45)
[2020-09-14] MEDS: Multivitamins, Adult 10 ML, Folic Acid 1 MG, Thiamine HCl 100 MG in Dextrose 5 %-0.45 %... IV SCH (10:56)
[2020-09-14] MEDS ORDERED: Melatonin 3 MG TAB PO SCH (21:00)
[2020-09-14] MEDS: Latanoprost 0.005% Ophth Soln 2.5 ml Bottle EA EYE SCH (22:08)
[2020-09-14] MEDS: Acetaminophen 325 MG TAB PO PRN (22:10)
[2020-09-15] MEDS: Brimonidine Tartrate 0.2% Ophth Soln 5 ml Bottle EA EYE SCH (08:34)
[2020-09-15] MEDS: Folic Acid 1 MG TAB PO SCH (08:39)
[2020-09-15] MEDS: Thiamine 100 MG TAB PO SCH (08:39)
[2020-09-15] MEDS: Famotidine/PF 20 mg/2ml Vial SLOW IVP SCH (08:39)
[2020-09-15] MEDS: DorzolamidE/Timolol 2%/0.5% Ophth Soln 10 ml Bottle EA EYE SCH (08:42)
[2020-09-15 08:49] LABS: Cardiac Risk 3.9 (Less than 4.5)
[2020-09-15] MEDS ORDERED: Aspirin 325 mg Enteric Coated Tablet PO SCH (09:00)
[2020-09-15 11:06] LABS: Anion Gap 11 mmol/L (10-20); BUN (Urea Nitrogen) 8 mg/dL (8.4-25.7); Calc. Creatinine Clearance 97 mL/min (70-130); Calcium 8.4 mg/dL (7.8-10.44); Carbon Dioxide 23 mmol/L (22-29); Chloride 103 mmol/L (98-107); Glucose 111 mg/dL (70-105); Potassium 3.5 mmol/L (3.5-5.1); Sodium 133 mmol/L (136-145)
[2020-09-15 11:55] VITALS: BP 132/84
[2020-09-15] MEDS: Multivitamins, Adult 10 ML, Folic Acid 1 MG, Thiamine HCl 100 MG in Dextrose 5 %-0.45 %... IV SCH (11:56)
[2020-09-15 12:07] VITALS: TEMP 98.1
[2020-09-15] MEDS ORDERED: Atorvastatin Calcium 40 MG TAB PO SCH (21:00)
[2020-09-15] MEDS ORDERED: Famotidine 20 MG TAB PO SCH (21:00)
== END 2020-09-15 15:38 | disposition home or self-care (01) | DRG 64 ==
LOC: ERS 19:19 → ERHOLD 09-13 04:04 → 2SE 09-13 13:25 → OBSVTOIN 09-14 16:56
PROVIDERS: ADMIT Student in an Organized Health Care Education/Training Program; ATTEND Internal Medicine
DX: I63.9 Cerebral infarction, unspecified (principal); G93.41 Metabolic encephalopathy; E87.1 Hypo-osmolality and hyponatremia; I16.0 Hypertensive urgency; R44.1 Visual hallucinations; D72.829 Elevated white blood cell count, unspecified; E86.0 Dehydration; E78.5 Hyperlipidemia, unspecified; H54.8 Legal blindness, as defined in USA; F10.10 Alcohol abuse, uncomplicated; M54.9 Dorsalgia, unspecified; H35.52 Pigmentary retinal dystrophy; Y90.0 Blood alcohol level of less than 20 mg/100 ml; Z88.5 Allergy status to narcotic agent; Z88.8 Allergy status to other drugs, medicaments and biological substances; Z90.49 Acquired absence of other specified parts of digestive tract; Z87.891 Personal history of nicotine dependence
CPT/HCPCS: 36415; 70450; 70551; 71045; 74018; 80048; 80053; 80061; 80306; 80307; 81003; 83690; 83935; 85025; 87086; 93306; 93880; 95712; 95819; 95957; 96365; 96366; 96374; 96375; 96376; G0378; J0360; J2060; J2270; J2405; J3411; J7042; S0028

== ENCOUNTER 2021-03-16 14:22 | Observation (INO) | payer MEDICARE ==
[~2021-03-16 14:22] MED LIST changes: -ISOVUE-370 76%-LOCM 1 ML ONE; +Lorazepam 1 MG TAB PO PRN
[2021-03-16] MEDS ORDERED: cefTRIAXone\\ROCEPHIN 1 GM VIAL ONE (15:25)
[2021-03-16 16:09] LABS: #Basophils 0.1 thou/uL (0.0-0.2); #Lymphocytes 1.6 thou/uL (1.20-3.40); #Monocytes 1.6 thou/uL (0.11-0.59); #Neutrophils 9.8 thou/uL (1.40-6.50); %Basophils 0.4 % (0.0-1.0); %Eosinophils 0.3 % (0.0-10.0); %Lymphocytes 11.8 % (21.0-51.0); %Monocytes 12.1 % (0.0-10.0); %Neutrophils 75.3 % (42.0-75.0); Mean Corpuscular HGB CONC 34.2 g/dL (32.0-36.0); Mean Corpuscular Hemoglobin 33.5 pg (27.0-31.0); Mean Corpuscular Volume 97.9 fL (78.0-98.0); Mean Platelet Volume 8.6 fL (7.4-10.4); Platelet Count 159 thou/uL (130-400); RBC Distribution Width 12.8 % (11.5-14.5); Red Blood Cell (RBC) Count 4.48 mill/uL (4.70-6.10); White Blood Cell (WBC) Count 13.1 thou/uL (4.8-10.8)
[2021-03-16 16:33] LABS: ALT (SGPT) 56 U/L (8-55); AST (SGOT) 64 U/L (5-34); Albumin 3.9 g/dL (3.4-4.8); Alkaline Phosphatase 59 U/L (40-110); Anion Gap 17 mmol/L (10-20); BUN (Urea Nitrogen) 11 mg/dL (8.4-25.7); Bilirubin, Total 1.6 mg/dL (0.2-1.2); Calc. Creatinine Clearance 0 mL/min (70-130); Calcium 9.6 mg/dL (7.8-10.44); Carbon Dioxide 24 mmol/L (23-31); Chloride 97 mmol/L (98-107); Globulin 4.5 g/dL (2.4-3.5); Glucose 99 mg/dL (80-115); Lipase 28 U/L (8-78); Magnesium 1.6 mg/dL (1.6-2.6); Potassium 3.7 mmol/L (3.5-5.1); Protein, Total 8.4 g/dL (5.8-8.1); Sodium 134 mmol/L (136-145)
[2021-03-16 16:34] LABS: Acetaminophen Less than 6.0 mcg/mL (10.0-30.0); Alcohol Less than 10 mg/dL (Less than 10); Salicylate Less than 8.0 mg/dL (15.0-30.0)
[2021-03-16 17:46] LABS: Bacteria/HPF None Seen HPF (None Seen); Bilirubin 1+ (Negative); Blood, Urine Negative (Negative); Clarity Clear (Clear); Glucose, Urine (Dipstick) Normal (Negative); Ketone, Urine 40 mg/dL (Negative); Leukocyte Negative Leu/uL (Negative); Nitrite Negative (Negative); Protein, Urine (Dipstick) 50 mg/dL (Neg-Trace); RBC/HPF 0-3 HPF (0-3); Specific Gravity, Urine 1.051 (1.002-1.036); Squamous Epithelial 0-3 HPF (0-3); Urobilinogen 6 mg/dL (Less than 2)
[2021-03-16 17:55] LABS: Amphetamine Not Detected (NotDetected); Barbiturates Screen Not Detected (NotDetected); Benzodiazepine Screen Not Detected (NotDetected); Cocaine Metabolite Screen Not Detected (NotDetected); Methadone Not Detected (NotDetected); Methamphetamine Not Detected (NotDetected); Opiate Screen Detected (NotDetected); Oxycodone Screen Not Detected (NotDetected); Phencyclidine (PCP) Not Detected (NotDetected); THC/Cannabinoid Screen Not Detected (NotDetected); Tricyclic Screen Not Detected (NotDetected)
[2021-03-16] MEDS ORDERED: Ondansetron PF 4 MG/2 ML Vial IVP PRN (19:28)
[2021-03-16] MEDS ORDERED: Acetaminophen 325 MG TAB PO PRN (19:28)
[2021-03-16] MEDS ORDERED: HYDROcodone/Acetaminophen 5/325 mg Tablet PO PRN (19:28)
[2021-03-16 19:58] VITALS: BMI 19.8
[2021-03-16] MEDS ORDERED: cefTRIAXone\\ROCEPHIN 1 GM in Sodium Chloride 0.9% 100 ML IVPB SCH (20:00)
[2021-03-16] MEDS ORDERED: Magnesium Sulfate 4 GM in Sodium Chloride 0.9% 250 ML 250 ML IVPB SCH (20:00)
[2021-03-16] MEDS: Sodium Chloride 0.45% 1,000 ML IV SCH (20:39)
[2021-03-16] MEDS ORDERED: Lorazepam 2 MG/ML VIAL IM PRN (21:15)
[2021-03-16] MEDS ORDERED: Electrolyte Replacement Protocol 1 EACH FS PRN (21:15)
[2021-03-16] MEDS ORDERED: Ondansetron ODT 4 MG TAB PO PRN (21:15)
[2021-03-16] MEDS: Lorazepam 1 MG TAB PO SCH (22:38)
[2021-03-16] MEDS: Thiamine HCl 200 MG/2 ML VIAL SLOW IVP SCH (22:39)
[2021-03-17 00:11] LABS: Base Excess (BEa) 0.1 mEq/L (-2.0 to +3.0); CO2 Tension 36.7 mmHg (35.0-45.0); Calcium, Ionized (arterial) 1.14 mmol/L (1.12-1.30); Carboxyhemoglobin (COHb) 0.9 gm% (0.0-3.0); Hemoglobin (Hb) 13.9 g/dL (14.0-18.0); O2 Tension (PaO2), arterial 71.9 mmHg (> 80.0); pH, Arterial 7.43 (7.35-7.45)
[2021-03-17 00:13] LABS: ALV-art Gradient 31.955 mmHg (0-20); Puncture Site RRA
[2021-03-17 04:44] LABS: Anion Gap 14 mmol/L (10-20); BUN (Urea Nitrogen) 9 mg/dL (8.4-25.7); Calc. Creatinine Clearance 100 mL/min (70-130); Calcium 8.7 mg/dL (7.8-10.44); Carbon Dioxide 24 mmol/L (23-31); Chloride 100 mmol/L (98-107); Glucose 83 mg/dL (80-115); Potassium 3.6 mmol/L (3.5-5.1); Sodium 134 mmol/L (136-145)
[2021-03-17 04:46] LABS: ALT (SGPT) 55 U/L (8-55); AST (SGOT) 70 U/L (5-34); Albumin 3.5 g/dL (3.4-4.8); Alkaline Phosphatase 55 U/L (40-110); Bilirubin, Direct 0.6 mg/dL (0.1-0.3); Bilirubin, Total 1.5 mg/dL (0.2-1.2); Protein, Total 7.5 g/dL (5.8-8.1)
[2021-03-17] MEDS: Lorazepam 1 MG TAB PO SCH ×6 (04:53→18:03)
[2021-03-17] MEDS ORDERED: FLU VACC QS2021-22(6MOS UP)/PF 60 MCG/0.5 ML SYRINGE IM ONE (09:00)
[2021-03-17] MEDS: Enoxaparin Sodium 40 MG/0.4 ML SYRINGE SC SCH (09:53)
[2021-03-17] MEDS: Multivit, Therapeutic 1 TAB PO SCH (09:53)
[2021-03-17] MEDS: Saccharomyces boulardii 250 MG CAP PO SCH (09:53)
[2021-03-17] MEDS: Folic Acid 1 MG TAB PO SCH (09:53)
[2021-03-17] MEDS: Sodium Chloride 0.45% 1,000 ML IV SCH ×2 (09:58→21:44)
[2021-03-17 10:49] LABS: SARS-CoV-2 PCR by NAA Not Detected (NotDetected)
[2021-03-17 13:34] LABS: #Eosinphils 0.4 thou/uL (0.0-0.7); #Lymphocytes 1.8 thou/uL (1.20-3.40); #Monocytes 1.8 thou/uL (0.11-0.59); #Neutrophils 8.4 thou/uL (1.40-6.50); %Basophils 0.3 % (0.0-1.0); %Eosinophils 3.1 % (0.0-10.0); %Lymphocytes 14.7 % (21.0-51.0); %Monocytes 14.1 % (0.0-10.0); %Neutrophils 67.8 % (42.0-75.0); Hemoglobin 15.2 g/dL (14.0-18.0); Mean Corpuscular HGB CONC 33.9 g/dL (32.0-36.0); Mean Corpuscular Hemoglobin 33.6 pg (27.0-31.0); Mean Corpuscular Volume 99.2 fL (78.0-98.0); Mean Platelet Volume 8.2 fL (7.4-10.4); Platelet Count 149 thou/uL (130-400); RBC Distribution Width 12.9 % (11.5-14.5); Red Blood Cell (RBC) Count 4.52 mill/uL (4.70-6.10); White Blood Cell (WBC) Count 12.5 thou/uL (4.8-10.8)
[2021-03-17] MEDS ORDERED: cefTRIAXone\\ROCEPHIN 1 GM in Sodium Chloride 0.9% 100 ML IVPB SCH (16:00)
[2021-03-17] MEDS ORDERED: Lorazepam 1 MG TAB PO PRN (21:15)
[2021-03-17] MEDS: Thiamine HCl 200 MG/2 ML VIAL SLOW IVP SCH (21:44)
[2021-03-18] MEDS: Lorazepam 1 MG TAB PO SCH (01:19)
[2021-03-18 05:40] LABS: Hemoglobin 14.5 g/dL (14.0-18.0); Mean Corpuscular HGB CONC 32.5 g/dL (32.0-36.0); Mean Corpuscular Hemoglobin 31.9 pg (27.0-31.0); Mean Corpuscular Volume 98.1 fL (78.0-98.0); Platelet Count 151 thou/uL (130-400); RBC Distribution Width 12.6 % (11.5-14.5); Red Blood Cell (RBC) Count 4.53 mill/uL (4.70-6.10); White Blood Cell (WBC) Count 10.5 thou/uL (4.8-10.8)
[2021-03-18 05:55] LABS: Anion Gap 13 mmol/L (10-20); BUN (Urea Nitrogen) 10 mg/dL (8.4-25.7); Calc. Creatinine Clearance 105 mL/min (70-130); Calcium 8.5 mg/dL (7.8-10.44); Carbon Dioxide 21 mmol/L (23-31); Chloride 101 mmol/L (98-107); Glucose 83 mg/dL (80-115); Sodium 132 mmol/L (136-145)
[2021-03-18 06:02] LABS: Potassium 2.9 mmol/L (3.5-5.1)
[2021-03-18] MEDS: Lorazepam 0.5 MG TAB PO SCH ×2 (06:21→11:55)
[2021-03-18 06:27] LABS: Eosinophils 2 % (0-10); Lymphocytes 13 % (21-51); MDiff Complete? YES; Monocytes 17 % (0-10); Neutrophil 68 % (42-75); Platelet Morphology Comment Appears Adequate; RBC Morphology Normal
[2021-03-18] MEDS ORDERED: Potassium Chloride 20 MEQ TAB PO SCH ×2 (06:30→10:30)
[2021-03-18] MEDS: Enoxaparin Sodium 40 MG/0.4 ML SYRINGE SC SCH (09:44)
[2021-03-18] MEDS: Saccharomyces boulardii 250 MG CAP PO SCH (09:45)
[2021-03-18] MEDS: Folic Acid 1 MG TAB PO SCH (09:45)
[2021-03-18] MEDS: Multivit, Therapeutic 1 TAB PO SCH (09:45)
[2021-03-18 11:14] LABS: Magnesium 1.8 mg/dL (1.6-2.6)
[2021-03-18] MEDS: Sodium Chloride 0.45% 1,000 ML IV SCH (11:51)
[2021-03-18 12:23] VITALS: BP 136/87; TEMP 98.9
[2021-03-18 12:58] LABS: Potassium 3.7 mmol/L (3.5-5.1)
[2021-03-18] MEDS ORDERED: Magnesium 2 GM/50 ML 2 GM in Premix Bag 1 BAG IVPB SCH (13:30)
[2021-03-18] MEDS ORDERED: Lorazepam 1 MG TAB PO PRN (21:15)
[2021-03-19] MEDS ORDERED: Lorazepam 0.5 MG TAB PO PRN (06:00)
[2021-03-19] MEDS ORDERED: Thiamine 100 MG TAB PO SCH (09:00)
== END 2021-03-18 14:45 | disposition home or self-care (01) ==
LOC: ERS 14:22 → SJJU 19:35 → 2NO 21:41
PROVIDERS: ADMIT Internal Medicine; ATTEND Family Medicine
DX: F10.10 Alcohol abuse, uncomplicated (principal); G93.41 Metabolic encephalopathy; I49.3 Ventricular premature depolarization; R82.81 Pyuria; E87.1 Hypo-osmolality and hyponatremia; J43.9 Emphysema, unspecified; K76.0 Fatty (change of) liver, not elsewhere classified; H54.8 Legal blindness, as defined in USA; Z86.73 Personal history of transient ischemic attack (TIA), and cerebral infarction without residual deficits; Z87.891 Personal history of nicotine dependence; Z79.899 Other long term (current) drug therapy; Z88.8 Allergy status to other drugs, medicaments and biological substances; Z20.822 Contact with and (suspected) exposure to COVID-19; Y90.0 Blood alcohol level of less than 20 mg/100 ml
CPT/HCPCS: 36600; 70450; 71045; 74176; 76705; 80048 ×2; 80076; 80306; 80307; 82140; 82607; 82746; 82805; 83605; 83690; 83735 ×2; 84132; 85025 ×2; 87040; 87086; 93005 ×2; 96365; 97139 ×2; 99285; U0003; U0005; 36415; 80053; 81003; 81015; 84443; 93010; 96372; 96375; 96376; G0378; J0696; J1650; J3411; J3475; J3490; J7050

== ENCOUNTER 2021-04-06 07:43 | Emergency (ER) ==
[2021-04-06 09:08] LABS: #Basophils 0.1 thou/uL (0.0-0.2); #Eosinphils 0.3 thou/uL (0.0-0.7); #Lymphocytes 2.7 thou/uL (1.20-3.40); #Monocytes 1.3 thou/uL (0.11-0.59); #Neutrophils 7.5 thou/uL (1.40-6.50); %Basophils 0.7 % (0.0-1.0); %Eosinophils 2.1 % (0.0-10.0); %Neutrophils 63.2 % (42.0-75.0); Hemoglobin 17.2 g/dL (14.0-18.0); Mean Corpuscular HGB CONC 33.5 g/dL (32.0-36.0); Mean Corpuscular Hemoglobin 32.1 pg (27.0-31.0); Mean Corpuscular Volume 95.7 fL (78.0-98.0); Mean Platelet Volume 7.3 fL (7.4-10.4); Platelet Count 248 thou/uL (130-400); RBC Distribution Width 12.3 % (11.5-14.5); Red Blood Cell (RBC) Count 5.36 mill/uL (4.70-6.10); White Blood Cell (WBC) Count 11.9 thou/uL (4.8-10.8)
[2021-04-06 09:28] LABS: ALT (SGPT) 51 U/L (8-55); AST (SGOT) 51 U/L (5-34); Albumin 4.3 g/dL (3.4-4.8); Alkaline Phosphatase 76 U/L (40-110); Anion Gap 15 mmol/L (10-20); BUN (Urea Nitrogen) 5 mg/dL (8.4-25.7); Bilirubin, Total 0.7 mg/dL (0.2-1.2); Calc. Creatinine Clearance 0 mL/min (70-130); Calcium 9.7 mg/dL (7.8-10.44); Carbon Dioxide 23 mmol/L (23-31); Chloride 98 mmol/L (98-107); Globulin 4.6 g/dL (2.4-3.5); Glucose 90 mg/dL (80-115); Potassium 4.7 mmol/L (3.5-5.1); Protein, Total 8.9 g/dL (5.8-8.1); Sodium 131 mmol/L (136-145)
== END 2021-04-06 10:14 | disposition home or self-care (01) ==
LOC: ERS 07:43
DX: R79.9 Abnormal finding of blood chemistry, unspecified (principal); J44.9 Chronic obstructive pulmonary disease, unspecified; Z86.73 Personal history of transient ischemic attack (TIA), and cerebral infarction without residual deficits; Z87.891 Personal history of nicotine dependence; Z79.82 Long term (current) use of aspirin; Z79.899 Other long term (current) drug therapy
CPT/HCPCS: 36415; 80053; 85025; 93005